=== PATIENT | male | born 1985 ===

== ENCOUNTER 2017-05-22 07:00 | Inpatient (IN) | payer OTHER ==
[~2017-05-22] VITALS: Ht 167.6 cm; Wt 78.5 kg
[2017-05-26] MEDS ORDERED: NKM (12:56)
[2017-05-27] VITALS (13 sets, daily range): BP systolic 98–118; BP diastolic 58–75
[2017-05-27] MEDS ORDERED: ceFAZolin 1gm/50ml Premix 50 ML IV ONE (07:00)
[2017-05-27] MEDS ORDERED: Dexamethasone 20mg/5ml IVP ONE (07:00)
[2017-05-27] MEDS ORDERED: Thrombin 5000 units TOPIC ONE (07:38)
[2017-05-27] MEDS ORDERED: Heparin 5000 units/ml inj ONE (07:39)
[2017-05-27] MEDS ORDERED: Surgicel 4in x 8in TOPIC ONE (07:39)
[2017-05-27] MEDS ORDERED: Bupivacaine w/Epi 0.5% 30ml Vial INJ ONE (07:40)
[2017-05-27] MEDS ORDERED: Lidocaine 1% 10mg/ml/Epi 0.005mg/ml 30ml vial INJ ONE (07:40)
[2017-05-27] MEDS ORDERED: Bacitracin 50000 Units Vial ONE (07:40)
[2017-05-27] MEDS ORDERED: Vancomycin 1gm inj IVPB ONE (07:41)
--- NOTE | 2017-05-27 08:57 | Anethesia Preoperative Eval ---
Anesthesia Pre-op PMH/ROS General Date of Evaluation: May 27, 2017 Time of Evaluation: 09:06 Anesthesiologist: Panfilo ASA Score: ASA 1 Mallampati Score Class I : Soft palate, uvula, fauces, pillars visible Class II: Soft palate, uvula, fauces visible Class III: Soft palate, base of uvula visible Class IV: Only hard plate visible Mallampati Classification: Class I Surgeon: Emliy Diagnosis: Back Pain Surgical Procedure: ALIF L5-S1, PSF Anesthesia History: other - Front Lower Teeth displaced 01/29/2017, Special Care This Anesthetic Family History: no anesthesia problems Allergies: Coded Allergies: No Known Allergies (Unverified , 05/26/17) Medications: see eMAR Past Medical History PSxH Narrative: Cervical SX 01/29/2017 Anesthesia Pre-op Phys. Exam Physician Exam Last Vital Signs Date Time Temp Pulse Resp B/P (MAP) Pulse Ox O2 Delivery O2 Flow Rate FiO2 05/27/17 08:17 98.2 64 18 113/70 99 Room Air Constitutional: NAD Neurologic: CN 2-12 intact Cardiovascular: RRR Respiratory: CTA Gastrointestinal: S/NT/ND Airway Exam Mallampati Score: Class I MO: full ROM: limited Teeth: intact, loose - 4 Front teeth Lower Anesthesia Pre-op A/P Risk Assessment & Plan Assessment: ASA 2 Plan: GA, BIS, Glidescope Status Change Before Surgery: No Pre-Antibiotics Dru Grams Ancef IV Given Within 1 Hr of Incision: Yes Time Given: 09:21 Gustavo Whittaker MD May 27, 2017 08:57
[2017-05-27] MEDS ORDERED: fentaNYL 250mcg/5ml ONE (09:00)
[2017-05-27] MEDS ORDERED: Labetalol 5mg/ml 20ml vial IV ONE (09:00)
[2017-05-27] MEDS ORDERED: LR 1000ml ONE (09:00)
[2017-05-27] MEDS ORDERED: Propofol 1,000mg/ 100ml btl IV ONE (09:00)
[2017-05-27] MEDS ORDERED: Lidocaine 1% Plain 30 ml INJ ONE (09:00)
[2017-05-27] MEDS ORDERED: fentaNYL 100 mcg/2 mL IV ONE (09:00)
[2017-05-27] MEDS ORDERED: NS Irrig 2000ml IRRIG ONE (09:00)
[2017-05-27] MEDS ORDERED: Zemuron 50mg/5ml Inj IV ONE (09:00)
[2017-05-27] MEDS ORDERED: Lidocaine 1% MPF 10mg/ml 5ml ONE (09:00)
[2017-05-27] MEDS ORDERED: Neostigmine 1mg/ml 10ml Inj ONE (09:00)
[2017-05-27] MEDS ORDERED: Sterile Water Irrig 1000ml IRRIG ONE ×2 (09:00)
[2017-05-27] MEDS ORDERED: Glycopyrrolate 0.2mg/ml 1ml Vial ONE (09:00)
[2017-05-27] MEDS ORDERED: NS Irrig 1000ml ONE ×2 (09:00)
[2017-05-27] MEDS ORDERED: LR 1000ml 1,000 ML IVLG SCH (09:04)
[2017-05-27] MEDS ORDERED: fentaNYL 100 mcg/2 mL IV PRN (09:15)
[2017-05-27] MEDS ORDERED: Midazolam 2mg/2ml Inj IVP PRN (09:15)
[2017-05-27] MEDS ORDERED: Ketorolac 30mg Inj IV PRN (09:15)
[2017-05-27] MEDS ORDERED: Atropine Inj 1mg/10ml Syr IV PRN (09:15)
[2017-05-27] MEDS ORDERED: Metoclopramide 10mg/2ml Inj IVP PRN (09:15)
[2017-05-27] MEDS ORDERED: Meperidine 25mg/0.5ml Inj (FOR RIGORS ONLY) IV PRN (09:15)
[2017-05-27] MEDS ORDERED: Norco 5mg/325mg tab ORAL PRN (09:15)
[2017-05-27] MEDS ORDERED: Hydromorphone 0.5mg/0.5ml inj IVP PRN (09:15)
[2017-05-27] MEDS ORDERED: DiphenhydrAMINE 50mg/ml Inj IVP PRN (09:15)
[2017-05-27] MEDS ORDERED: Acetaminophen (Non formulary) 100 ML IV ONE (09:15)
[2017-05-27] MEDS ORDERED: Norco 7.5mg/325mg tab ORAL PRN (09:15)
[2017-05-27] MEDS ORDERED: Ketorolac 60mg Inj IV PRN (09:15)
[2017-05-27] MEDS ORDERED: LORazepam Inj 2mg/ml 1ml IV PRN (09:15)
[2017-05-27] MEDS ORDERED: oxyCODONE HCL/Acetaminophen 5/325mg ORAL PRN (09:15)
--- NOTE | 2017-05-27 09:19 | Pre-Procedure Note/Attestation ---
Pre-Procedure Note/Attestation Complete Prior to Procedure Procedure Narrative: ALIF L5-S1, internal fixation, correction deformity, fusion Posterior pedicle screw instrumentation L5, S1 Indications for Procedure Pre-Operative Diagnosis: POst trauma lumbar discogenic backpain Attestation I attest that I discussed the nature of the procedure; its benefits; risks and complications; and alternatives (and the risks and benefits of such alternatives ), prior to the procedure, with the patient (or the patient's legal it sales representative). I attest that, if there was a reasonable possibility of needing a blood transfusion, the patient (or the patient's legal it sales representative) was given the [facility] standardized written summary, pursuant to the [place] Blood Safety Act ([place] Health and Safety Code # 1645, as amended). I attest that I re-evaluated the patient just prior to the surgery and that there has been no change in the patient's H&P, except as documented below: JULIETH MARTÍNEZ May 27, 2017 09:19
--- NOTE | 2017-05-27 10:40 | Immediate Post-Op Evaluation ---
Immediate Post-Op Evalulation Immediate Post-Op Evalulation Procedure: ALIF L5-S1, PSF Date of Evaluation: May 27, 2017 Time of Evaluation: 13:05 IV Fluids: 1100 LR Blood Products: 0 Estimated Blood Loss: 50 Urinary Output: 400 Blood Pressure Systolic: 112 Blood Pressure Diastolic: 64 Pulse Rate: 79 Respiratory Rate: 16 O2 Sat by Pulse Oximetry: 100 Temperature (Fahrenheit): 97.6 Pain Score (1-10): 3 Nausea: No Vomiting: No Complications 0 Patient Status: awake, reacts, patent, extubated, none Hydration Status: adequate Dru Grams Ancef IV Given Within 1 Hr of Incision: Yes Time Given: 09:21 Gustavo Whittaker MD May 27, 2017 10:40
--- NOTE | 2017-05-27 12:21 | Brief Operative Note ---
Immediate Post Operative Note Operative Note Pre-op Diagnosis: POst trauma lumbar discogenic backpain Procedure: Anterior Interbody Aero device lordotic correction deformity internal fixation BMP placement fusion ssep xray vascular Posterior Pedicle screw L5, S1 Xray SSEP Local L5-S1 facet fusion Post-op Diagnosis: same as pre-op Findings: consistent w/pre-op dx studies Surgeon: Emily Umaña(anterio) [place] Worker: Rema mckee Anesthesiologist: Panfilo Anesthesia: general Specimen: none Complications: none Condition: stable Fluids: see anesthesia Estimated Blood Loss: minimal Drains: none Implant(s) used?: Yes JULIETH MARTÍNEZ May 27, 2017 12:21
[2017-05-27] MEDS ORDERED: Naloxone 0.4mg/ml Inj IVP PRN (12:30)
[2017-05-27] MEDS ORDERED: HYDROmorphone 1mg/ml Carpuject SUBQ PRN (12:30)
--- NOTE | 2017-05-27 14:35 | Diagnostic Imaging Report ---
Indication: PAIN, intraoperative Technique: Intraoperative images Comparison: None Findings: Intraoperative images demonstrate localizing needle at what is presumably the L5-S1 disc, although there does appear to be transitional anatomy. Subsequent images document placement of a disc spacer and posterior fusion hardware at L5-S1. Impression: Intraoperative imaging, as described
[2017-05-27] MEDS ORDERED: D5 1/2NS 1,000 ML IV SCH (15:00)
[2017-05-27] MEDS: ceFAZolin sod 1 GM in D5W 55 ML IV SCH (16:36)
[2017-05-27] MEDS ORDERED: Chloraseptic Spray 20mL Bottle ORAL PRN (19:00)
--- NOTE | 2017-05-27 19:40 | Cardiology Progress Note ---
Assessment/Plan Assessment/Plan [id number] dictated Objective Last 24 Hour Vital Signs Date Time Temp Pulse Resp B/P (MAP) Pulse Ox O2 Delivery O2 Flow Rate FiO2 05/27/17 16:00 97.5 82 19 114/61 Nasal Cannula 05/27/17 14:58 86 18 118/63 100 Nasal Cannula 3.0 05/27/17 14:37 97.9 75 18 98/68 100 Nasal Cannula 3.0 05/27/17 14:10 97.4 64 19 109/58 100 Nasal Cannula 3.0 05/27/17 14:00 64 13 105/60 100 Nasal Cannula 3.0 05/27/17 13:45 63 14 109/69 100 Nasal Cannula 3.0 05/27/17 13:30 63 13 118/71 100 Nasal Cannula 3.0 05/27/17 13:20 76 15 114/75 100 Nasal Cannula 3.0 05/27/17 13:10 82 13 114/69 100 Simple Mask 6.0 05/27/17 13:00 67 12 117/67 100 Simple Mask 6.0 05/27/17 12:57 79 16 100 05/27/17 12:54 97.2 74 14 112/66 100 Simple Mask 6.0 05/27/17 08:17 98.2 64 18 113/70 99 Room Air Intake and Output 05/27/17 05/28/17 19:00 07:00 Intake Total 1500 ml Output Total 1625 ml Balance -125 ml Intake IV Total 1500 ml Output Urine Total 1575 ml Estimated Blood Loss 50 ml # Voids 1 ANAM ENCISO May 27, 2017 19:40
--- NOTE | 2017-05-27 20:46 | Operative Note - Dictated ---
DATE OF OPERATION: 05/27/2017 SURGEON: Rk Diaz M.D. ANTERIOR CO-SURGEON FOR FUSION: Lg Umaña M.D., Vascular Surgery. POSTERIOR SEASONAL RETAIL MERCHANDISER: SELMA Hodgson. ANESTHESIOLOGIST: Gustavo Whittaker M.D. ANESTHESIA: General with intubation. ESTIMATED BLOOD LOSS: Less than 50 mL. COMPLICATIONS: None. POSTOPERATIVE CONDITION: Good/stable. Preoperative Diagnosis: L5-S1 posttraumatic severe/increasing lumbosacral back pain. Postoperative Diagnosis: L5-S1 posttraumatic severe/increasing lumbosacral back pain. Procedure: Anterior: Interbody reconstruction fusion L5-S1 with correction of deformity. Placement of bone morphogenic protein. Placement of artificial interbody device. Internal fixation. SSEP monitoring and high-power x-ray interpretation by surgeons. COMPLICATIONS: None. Posterior pedicle screw instrumentation, L5, S1. SSEP. X-rays. Facet fusion L5-S1. Local anesthetic applied by surgeon. Description Of Procedure: The patient brought to the operating room and in supine position, general anesthesia with intubation was induced. IV antibiotics and IV Decadron were administered 30 minutes prior to incision time. Anterior abdomen was sterilely prepped and draped free in usual sterile fashion. Please see separate dictation by Dr. Umaña for vascular exposure. Identification of midline and the correct level with needle placement into the disk space was obtained with AP and lateral radiographs under fluoroscopic guidance. Position of needle recorded. Needle removed. Annulotomy performed with diskectomy tube, but not through the posterior longitudinal ligament. Endplate cartilage removed. Subchondral bone maintained. Interpositional device determined with appropriate trials with lordosis, correction deformity __8____ degrees. Aero plates containing bone morphogenic protein for fusion, internal fixation. Graft incorporated in fibrin glue. Wound irrigated with antibiotic-containing saline. Please see vascular report for closure. The patient was carefully turned from the supine to the prone position onto new operating bed. All instrumentation and instruments from the first anterior procedure were removed from the room. All the new instruments opened. Lumbodorsal spine sterilely prepped. Spinal needle placed under sterile conditions into the subcutaneous tissue and a cross-table radiograph obtained under sterile conditions demonstrating the correct level for incision placement. Position recorded. Crescent removed. Back was re-sterilely prepped and draped free in usual sterile fashion. Appropriate incision over the involved interval was sharply placed through dermis and epidermis. Electrocautery dissection through the subcutaneous tissue to the lumbodorsal fascia incised right and left of midline over the respective intervals. Confirmation of positions with marker in place and cross-table imaging under sterile conditions. Bilateral L5 pedicle screw instrumentation, bilateral S1 pedicle screw instrumentation was undertaken with position determination based on anatomic landmarks confirmed with fluoroscopic guidance. Posterior cortex drilled. Pedicle finally utilized for pedicle probing. Determination of length, tapping. Physical ball tip probe utilized for determination of integrity of the pedicle circumferentially. SSEP monitoring, negative EMGs. Screws inserted. Negative EMGs by SSEP. Screw stimulation 5 milliamps negative, recorded. Appropriate length of lordotic rods torqued into position at L5-S1 bilaterally. Wound irrigated with antibiotic-containing saline. A 1 gram of vancomycin powder applied. Sequential reapproximation of the lumbodorsal fascia and subcutaneous tissue in multiple layers. Dermis and epidermis further approximated with surgical strips. Local anesthetic applied bilateral lateral aspects of the incision, 1% lidocaine with epinephrine. Sterile bandage applied and maintained in place with tape. The patient was carefully turned from the prone to supine position on the transport bed where was awakened and extubated in the operating room and transported to postoperative recovery in good stable condition. Rk Diaz M.D. DR: Elyse JOB#: [id number] CC: [id number]
[2017-05-27] MEDS: HYDROmorphone 1mg/ml Carpuject SUBQ PRN (21:20)
--- NOTE | 2017-05-27 21:46 | Operative Note - Dictated ---
DATE OF OPERATION: 05/27/2017 VASCULAR SURGEON: Lg Umaña M.D. SPINE SURGEON: Rk Diaz M.D. PREOPERATIVE DIAGNOSIS: Degenerative disk disease. POSTOPERATIVE DIAGNOSIS: Degenerative disk disease. Procedure Performed: Anterior retroperitoneal exposure of L5-S1 vertebral interspace. Indications: This is a very pleasant gentleman, who is seen in my office prior to surgery. He has been scheduled for anterior fusion of L5-S1. He had no prior intraabdominal surgery. No history of deep venous thrombosis or bleeding complications were described. He has been made aware of the need for vascular mobilization, possibly vascular injury, deep venous thrombosis, and possible need for blood transfusion were carefully explained. Description of Findings: A low vertical midline incision was used. A left retroperitoneal approach was used. There was no peritoneal or ureteral violation. There is no vascular injury. Exposure of L5-S1 was obtained below the iliac bifurcation with traction of left iliac vessels superior and laterally. Fluoroscopy was used to confirm the appropriate level. On completion, the peritoneum and ureter are intact and iliac vessels are intact. Blood loss was less than 50 mL and complications were none. Description Of Procedure: The patient was taken to the operating room, general anesthesia was used. IV antibiotics were given. The patient's abdomen was prepped and draped. Appropriate time-out for procedure taken. A low vertical midline incision was made infraumbilically. The anterior fascia was incised longitudinally in the midline. A plane identified posterior to the left rectus abdominis and developed posterolaterally towards the patient's left. The retroperitoneal space entered below the arcuate line and the peritoneum and ureter were mobilized towards the patient's right exposing the left common iliac vessels. Dissection was carried on the undersurface of left common iliac vein and the middle sacral artery and vein were ligated with vascular clips and divided. The left iliac vessels were then retracted superiorly and laterally and the peritoneum and ureter were mobilized towards the patient's right exposing the anterior surface of L5-S1. The Omni retractor was set in place. Fluoroscopy was then used to confirm the appropriate level and then instrumentation and fusion were performed at L5-S1 dictated separately. On completion, the peritoneum and ureter were intact. Iliac vessels were intact. Anterior fascia was closed with #1 PDS in a running fashion. Skin and subcutaneous tissue were closed with 3-0 Vicryl and 4-0 Monocryl running subcuticular closure technique. Lg Umaña M.D. DR: HARI JOB#: [id number] CC:
[2017-05-28] VITALS: BP 100/60
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
[2017-05-28] MEDS: ceFAZolin sod 1 GM in D5W 55 ML IV SCH ×2 (02:15→08:49)
[2017-05-28] MEDS: HYDROmorphone 1mg/ml Carpuject SUBQ PRN ×3 (02:21→12:44)
[2017-05-28 04:00] VITALS: BP 100/55
--- NOTE | 2017-05-28 08:30 | 48 Hour Post Anesthesia Eval ---
Post Anesthesia Evaluation Procedure: ALIF L5-S1, PSF Date of Evaluation: May 28, 2017 Time of Evaluation: 08:29 Blood Pressure Systolic: 132 0: 58 Pulse Rate: 74 Respiratory Rate: 20 Temperature (Fahrenheit): 97.6 O2 Sat by Pulse Oximetry: 98 Airway: patent Nausea: No Vomiting: No Pain Intensity: 3 Hydration Status: adequate Cardiopulmonary Status: stable Mental Status/LOC: patient returned to baseline Follow-up Care/Observations: n/a Post-Anesthesia Complications: none Follow-up care needed: N/A MATT REYES M.D. May 28, 2017 08:30
[2017-05-28 08:40] VITALS: BP 92/51
[2017-05-28 11:36] VITALS: BP 97/60
--- NOTE | 2017-05-28 12:00 | Consultation ---
DATE OF CONSULTATION: 05/27/2017 CARDIOLOGY AND INTERNAL MEDICINE EVALUATION AND TRANSPORT TECHNICIAN PHYSICIAN: Ghanshyam Obrien M.D. REFERRING PHYSICIAN: Rk Diaz M.D. REASON FOR EVALUATION: Postoperative medical care. History Of Present Illness: This is a young gentleman, who is known to me from prior evaluation preoperatively. The patient underwent surgical procedure by Dr. Diaz today and he is being seen postoperatively for medical treatment. He really does not have any pain. In fact, he feels really good at the present time. He does not have any chest pain or shortness of breath. He has some dryness in his throat. No sore throat. No palpitation. No dizziness or lightheadedness. Past Medical History: Basically negative. He has had clavicle and foot surgery and he had cervical spine surgery without any problems recently. ALLERGIES: There is no known drug allergies. FAMILY HISTORY: Negative. Social History: Smokes cigarettes per month, two beers three or four times a week. Denies drugs. No marijuana for two months. Not . No kids. 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 Review Of Systems: Gastrointestinal: He denies any nausea or vomiting. No diarrhea. He has not had a bowel movement. Genitourinary: Dorsey catheter in place. Pulmonary: Denies any coughing or wheezing. Constitutional: Denies any fever or chills. Neurological: Denies any numbness or tingling sensation. No weakness in his arms, legs, and face. PHYSICAL EXAMINATION: General: Shows to be a young gentleman, in no apparent respiratory distress. Neck: Supple. No jugular venous distention. No abdominojugular reflux noted. LUNGS: Clear to auscultation and percussion. Cardiac: S1 is normal. S2 is normal. Regular rate and rhythm. No heaves, thrills, gallops, or rubs are noted. ABDOMEN: A surgical dressing in the lower abdominal wall is noted. Extremities: There is no clubbing, cyanosis, or edema. He has pneumatic compression stockings in place and he has good movement in both of his feet bilaterally. LABORATORY DATA: No new laboratories are available. Assessment And Plan: Lumbar discogenic pain disease, now status post L5 and S1 interbody reconstruction. He seems to be doing well postoperatively with pain management and intravenous fluids until he is able to take p.o. Antiemetics and pain medications are in order. Ambulate as soon as allowed by Dr. Diaz. Once he is able to have a bowel movement and eat and is able to ambulate, he will be discharged home. Pneumatic compression stockings for deep venous thrombosis prophylaxis and no other recommendations at this time except as needed. He is doing well. Ghanshyam Obrien M.D. DR: LISA JOB#: [id number] CC:
[2017-05-28 16:32] VITALS: BP 103/65
[2017-05-28] MEDS: Norco 10mg/325mg tab ORAL PRN ×3 (16:47→23:35)
[2017-05-28] MEDS ORDERED: D5 1/2NS 1,000 ML IV SCH (20:00)
[2017-05-28 20:22] VITALS: BP 93/48
--- NOTE | 2017-05-28 20:50 | Cardiology Progress Note ---
Assessment/Plan Assessment/Plan Lumbar discogenic pain disease, post L5 and S1 interbody reconstruction. doing well bp borderline no bm yet has walked no sx once has bm adn eat may be able to dc ant dressign appear dry and intact no redness no drainage ivf bolus this evening Subjective Cardiovascular: Denies: chest pain, lightheadedness, palpitations Respiratory: Denies: orthopnea, shortness of breath Gastrointestinal/Abdominal: Reports: abdominal pain Genitourinary: Denies: burning Objective Last 24 Hour Vital Signs Date Time Temp Pulse Resp B/P (MAP) Pulse Ox O2 Delivery O2 Flow Rate FiO2 05/28/17 20:22 98.1 66 18 93/48 96 Room Air 05/28/17 17:59 97.8 05/28/17 16:32 97.8 60 20 103/65 95 Nasal Cannula 2.0 05/28/17 13:14 97.6 05/28/17 11:36 97.6 57 20 97/60 100 Nasal Cannula 2.0 05/28/17 08:40 97.8 55 19 92/51 99 Room Air 05/28/17 08:30 74 20 98 05/28/17 04:00 97.3 57 18 100/55 98 Nasal Cannula 2.0 05/28/17 00:00 98.0 72 18 100/60 98 Nasal Cannula 2.0 General Appearance: no apparent distress, alert Cardiovascular: normal rate, regular rhythm Respiratory/Chest: lungs clear, normal breath sounds Abdomen: normal bowel sounds, soft Extremities: no swelling Intake and Output 05/28/17 05/29/17 19:00 07:00 Intake Total 860 ml Output Total 1150 ml Balance -290 ml Intake Oral 860 ml Output Urine Total 1150 ml # Voids 3 FERNIEANAM May 28, 2017 20:50
[2017-05-28] MEDS ORDERED: NS 250 ML IVPB ONE (21:00)
[2017-05-29 00:23] VITALS: BP 104/55
--- NOTE | 2017-05-29 00:45 | Progress Note ---
DATE: 05/28/2017 ACUTE PAIN MANAGEMENT PHYSICIAN PROGRESS NOTE Medications: Medication administration record reviewed. Medications include Mylanta, Soma, IV fluids, Benadryl, Biggers, Dilaudid, Narcan, Protonix, and Chloraseptic spray. LABORATORY STUDIES: No interval laboratory studies. OBJECTIVE: Vital Signs: Within normal limits. Afebrile, pulse 57, respirations 20, blood pressure 100/60, and oxygen saturation 100% on supplemental oxygen. I spent over 60 minutes in consultation today. I saw the patient at bedside with the nurse RN, Geraldo and the patient's roommate. The Dorsey catheter was removed earlier, and the patient is voiding urine adequately. He is passing positive flatus and the surgeon, Dr. Diaz advanced the patient's diet to full liquids, which has been adequately tolerated. I would recommend the patient a trial of regular diet for dinner and also use prune juice and oral hydrocodone at dinner time as well to help expedite the patient's hospital discharge. The patient already has Biggers at home for home usage and is trying to obtain the Soma prescriptions with his provider earlier by Dr. Diaz in the preoperative outpatient clinic. The patient denies constipation normally, but may have mild opioid-induced constipation issues due to the narcotic usage here in the hospital after his extensive lumbar spine instrumentation surgery. The patient has been compliant with his incentive spirometer. The patient has excellent social support at home to assist with activities of daily living once he is discharged to home. The patient has been ambulating with physical therapy frequently and has good neurologic function grossly postoperatively. Since the patient is tolerating advancing diet, I will Hep-Lock his IV fluids in order to encourage movement in and out of bed. He is breathing comfortably. We will wean off of his supplemental oxygen. While in bed, the patient will continue with sequential compression devices for DVT prophylaxis. Increased ambulation will also help with DVT prevention. Overall, the patient is recovering very well after his lumbar spine instrumentation surgery. We will see how he progresses with his diet and bowel function and ambulation over the next 24 hours. We will also see if he is able to wean off of his parenteral narcotics so that he can rely solely on oral analgesics once he returns home. Josué Sánchez M.D. DR: JV JOB#: [id number] CC:
[2017-05-29] MEDS: Norco 10mg/325mg tab ORAL PRN ×2 (03:22→09:28)
[2017-05-29 04:38] VITALS: BP 112/62
[2017-05-29] MEDS ORDERED: Milk of Magnesia 30ml Ud ORAL PRN (07:30)
[2017-05-29 08:00] VITALS: BP 107/59
--- NOTE | 2017-05-29 09:15 | Progress Note ---
ACUTE PAIN MANAGEMENT PHYSICIAN PROGRESS NOTE SUBJECTIVE: Medication administration record reviewed. Medications: Include Chloraseptic spray, Protonix, Narcan, Dilaudid, Kenly, Benadryl, Soma, and Mylanta. LABORATORY STUDIES: No interval laboratory studies. PHYSICAL EXAMINATION: Vital Signs: Afebrile. Pulse 80, respirations 19, blood pressure 112/52, and oxygen saturation 97% on room air. I spent over 60 minutes in consultation today. I discussed the case with the surgeon, Dr. Diaz and the nurse RN, Lea. The patient has been ambulating very well. The patient is in contact with his claim attorney trying to obtain the outpatient prescription for Soma, which the pharmacy had not yet filled. The patient already does have Kenly at home for home usage. The patient has drunk four servings of prune juice, which should help with a bowel movement later today. He is passing positive flatus and has been eating good quantity of regular diet. The patient states that his pain is adequately controlled on his current analgesic regimen. He has not required considerable parental narcotic dosing any longer and is tolerating his pain quite well. The patient is compliant using his incentive spirometer. The patient has good social support with his girlfriend and roommate to help with activities of daily living once the patient is discharged to home. The patient is ambulating quite well. He is compliant using his incentive spirometer. The patient has normal vital signs and is afebrile. At this point, we will await a bowel movement after his anterior lumbar interbody fusion procedure. Once the bowel movement occurs, I expect the patient will be a candidate for discharge trial home if cleared by the surgeon, Dr. Diaz. Josué Sánchez M.D. DR: ISABEL JOB#: [id number] CC:
[2017-05-29] MEDS ORDERED: D5 1/2NS 1000ml IV ONE (10:59)
[2017-05-29] MEDS ORDERED: Tubing IV Secondary IV ONE (10:59)
--- NOTE | 2017-06-01 11:09 | Discharge Summary ---
Discharge Summary Hospital Course Date of Admission May 27, 2017 at 07:35 Date of Discharge May 29, 2017 at 11:00 Admitting Diagnosis posttraumatic lumbosacral back pain L5-S1 Reason for Hospitalization: elective surgery HPI Bneoit Contreras is a 31 year old male who was admitted on May 27, 2017 at 07:35 for posttraumatic increasing lumbosacral pain L5 S1 and elective surgery Consultations dr Obrien ( IM) dr Sánchez ( pain specialist) Procedures s/p by Cecelia Magallon Anterior: Interbody reconstruction fusion L5-S1 with correction of deformity. Placement of bone morphogenic protein. Placement of artificial interbody device. Internal fixation. SSEP monitoring and high-power x-ray interpretation by surgeons. s/p 05/27/[address] Gini M.D. Anterior retroperitoneal exposure of L5-S1 vertebral interspace. Hospital Course course of recovery uneventful initially IVF and NPO pain management pain specialist followed neurovascular intact ambulated with PT SCD as a mechanical prophylaxis for DVT diet started when bowel function returned and advanced as tolerated a/emetic prn able to tolerate diet Dorsey dc voided freely bowel regimen cleared for dc and f/up with surgeon as outpatient as advised by surgeon FINAL DIAGNOSIS L5-S1 posttraumatic , severe and increasing lumbosacral back pain. s/p ALIF L5-S1, PSF( anterior lumbar interbody fusion L5-S1, posterior screw fixation) Discharge Condition Upon Discharge: stable Discharge Disposition Patient was discharged to Home (01) Discharge Diagnoses: Discharge Instructions Discharge Instructions Special Instructions I have been assigned to complete a D/C Summary on this account. I was not involved in the patient management Elsie Maldonado NP ([place]) Jun 01, 2017 11:09
== END 2017-05-29 11:00 | disposition home or self-care (01) | DRG 455 ==
LOC: SDSOVERFLO 05-27 07:35 → 3E 05-27 14:08
PROC: 0SG30A0 Fusion of Lumbosacral Joint with Interbody Fusion Device, Anterior Approach, Anterior Column, Open Approach (ICD-10-PCS; principal; 2017-05-27 09:00)
PROC: 0SG30A1 (ICD-10-PCS; principal; 2017-05-27 09:00)
PROC: 3E0U0GB Introduction of Recombinant Bone Morphogenetic Protein into Joints, Open Approach (ICD-10-PCS; principal; 2017-05-27 09:00)
PROC: 4A11X4G Monitoring of Peripheral Nervous Electrical Activity, Intraoperative, External Approach (ICD-10-PCS; principal; 2017-05-27 09:00)
DX: M51.37 Other intervertebral disc degeneration, lumbosacral region (principal); G89.18 Other acute postprocedural pain; K59.03 Drug induced constipation; T40.2X5A Adverse effect of other opioids, initial encounter; Y92.230 Patient room in hospital as the place of occurrence of the external cause
CPT/HCPCS: 36415; 72020; 76001; 86850; 86900; 86901; 87081; 94003; 94150; J2405; J2710